=== PATIENT | male | born 1995 | race Caucasian/White ===

== ENCOUNTER 2017-11-17 08:12 | Emergency (ER) | payer SELFPAY ==
[~2017-11-17] VITALS: Ht 185.4 cm; Wt 81.6 kg
[2017-11-17 08:28] VITALS: Ht 185.4 cm; Wt 81.6 kg
[2017-11-17 09:12] VITALS: BP 116/72
== END 2017-11-17 09:12 | disposition other institution (70) ==
LOC: ED 08:12
DX: S60.511A Abrasion of right hand, initial encounter (principal); F12.90 Cannabis use, unspecified, uncomplicated; V47.5XXA Car driver injured in collision with fixed or stationary object in traffic accident, initial encounter; W22.11XA Striking against or struck by driver side automobile airbag, initial encounter; Y93.I9 Activity, other involving external motion; Y92.410 Unspecified street and highway as the place of occurrence of the external cause; Y99.8 Other external cause status
CPT/HCPCS: 90715

== ENCOUNTER 2017-11-17 08:12 | Emergency (ER) | payer OTHER | END 2017-11-17 09:12 | disposition other institution (70) | LOC: ED 08:12 | DX: Z02.89 Encounter for other administrative examinations (principal) ==